=== PATIENT | female | born 1930 | race Caucasian/White ===

== ENCOUNTER → 2017-01-03 | Outpatient (CLI) | payer MEDICARE, BC ==
[~2017-01-03] MED LIST: ACETAMINOPHEN PO; ALAVERT10 MG PO; ALBUTEROL MININEB INH; ALDACTONE PO; AMITIZA8 MCG PO; AMLODIPINE BESYL5 MG PO; ANTIVERT PO; ANTIVERT12.5 MG; ANTIVERT12.5 MG PO; APRESOLINE10 M1 PO; ASCORBIC ACID500 MG PO; ASPIRIN EC81 M1 PO; ASPIRIN PO; ASPIRIN81 M1 PO; ASPIRIN81 M2 PO; ASPIRIN81 MG PO; CARVEDILOL3.125 MG PO; CATAPRES0.1 M1 PO; CIPRO PO; COREG3.125 MG PO; COUMADIN PO; COUMADIN4 MG PO; COUMADIN5 MG PO; COZAAR100 MG PO; DIGITEK; DIGOXIN125 MCG PO; FISH OIL 1,001000 MG PO; FUROSEMIDE40 MG PO; GUAIFEN-P-EPHE480 ML PO; HCTZ PO; HYDRALAZINE HCL50 MG PO; IMDUR-ER30 M1 PO; IMDUR-ER30 M3 PO; IMDUR-ER30 MG PO; IMODIUM2 MG PO; ISOSORBIDE MONO30 M1 PO; K-DUR20 ME1 PO; KCL PO; KEPPRA500 M1 PO; KEPPRA500 MG PO; KLOR-CON PO; KLOR-CON SPRIN10 MEQ PO; LANOXIN IV; LANOXIN PO; LANOXIN125 MCG PO; LASIX PO; LEVAQUIN PO; LEVAQUIN750 M1 PO; LEXAPRO PO; LOPRESSOR PO; LOSARTAN POTAS100 MG PO; METOPROLOL SUCC50 MG PO; METOPROLOL TAR25 MG PO; METOPROLOL TART25 MG PO; MIRALAX119 GM PO; MIRALAX17 G2 PO; MIRALAX17 GM; MIRALAX17 GM PO; MUCINEX1200 MG/BO PO; NATURAL VITA200 UNI1 PO; NITROGLYGERIN0.4 MG SL; NITROQUICK0.4 MG SL; NORVASC PO; NORVASC2.5 MG PO; OMEGA 3; OMEGA 3 PO; OMEGA 3-6-9 CO400 MG PO; OMEGA-3 SOFTGE1 EACH PO; OMEGA-3-FISH O1 EACH PO; OMEPRAZOLE20 M2 PO; PANTOPRAZOLE SO20 MG; PANTOPRAZOLE SO40 MG PO; PHENERGAN PO; PREVACID PO; PRILOSEC20 M1; PROTONIX PO; PROVERA PO; ROBINUL FORTE2 MG PO; SENNA PO; SENNA S TABLET1 TAB PO; SENNA8.6 M2 PO; SENNA8.6 M3; SENNAKOT PO; SEPTRA DS PO; TOPROL XL 50 MG50 M1 PO; TOPROL XL 50 MG50 MG PO; TOPROL XL PO; TOPROL XL50 MG PO; TRAMADOL HCL50 M1 PO; ULTRAM PO; VIT E PO; VITAMIN C PO; VITAMIN C500 M1 PO; VITAMIN E200 UNI3 PO; VITAMIN E200 UNIT PO; WARFARIN SODIUM2 M1 PO; WARFARIN SODIUM4 M1 PO; ZITHROMAX PO; [UNRECOGNIZED DRUG - OTHER]
--- NOTE | ~2017-01-03 | CR169 ---
[facility] A [facility] RADIOLOGY TEXT RESULTS PATIENT: FILIBERTO KING LOCATION: [facility] : [birth year] UNIT #: [id number] AGE: [address]: Radha Villegas MD SEX: F ORDER DR: [id number] [address] [address] [id number] O MR#: [id number] Acc #: [id number] NAME: FILIBERTO KING : 1930 SEX: F STUDY DATE/TIME: 01/03/2017 12:02 UNIT: [facility] ROOM: STUDY DESCRIPTION: CR Knee 2 Views Lt Attending Physician: Radha Villegas M.D. Referring Physician: Radha Villegas M.D. Ordering Physician: Radha Villegas M.D. Primary Care Physician: Radha Villegas M.D. MEDICAL IMAGING REPORT This report is preliminary unless electronic signature is present. EXAM Left knee. DATE OF EXAM 01/03/2017 INDICATIONS 86-year-old female with osteoarthritis, pain with weightbearing on the left for 2 weeks. No known injury. REPORT 2 views of the left knee. COMPARISON No comparisons. FINDINGS The bones are osteopenic. No acute fracture or joint effusion. Mild tricompartmental degenerative changes most severe in the lateral compartment. There is spurring of the tibial spines. IMPRESSION 1. Degenerative changes, otherwise, negative. Dictated by... Dannie Steele M.D. THIS IS AN ELECTRONICALLY VERIFIED REPORT Dannie Steele M.D. at 01/03/2017 7:17 PM SAGE/shayy TD: 01/03/2017 17:52 [facility] A [facility] RADIOLOGY TEXT RESULTS PATIENT: FILIBERTO KING LOCATION: [facility] : [birth year] UNIT #: [id number] AGE: [address]: Radha Villegas MD SEX: F ORDER DR: PRIYA #: [id number] MEDICAL IMAGING REPORT Page 1 of 1
--- NOTE | ~2017-01-03 | CR170 ---
[facility] A [facility] RADIOLOGY TEXT RESULTS PATIENT: FILIBERTO KING LOCATION: [facility] : [birth year] UNIT #: [id number] AGE: [address]: Radha Villegas MD SEX: F ORDER DR: [id number] [address] [address] [id number] O MR#: [id number] Acc #: [id number] NAME: FILIBERTO KING : 1930 SEX: F STUDY DATE/TIME: 01/03/2017 12:02 UNIT: [facility] ROOM: STUDY DESCRIPTION: CR Knee 2 Views Rt Attending Physician: Radha Villegas M.D. Referring Physician: Radha Villegas M.D. Ordering Physician: Radha Villegas M.D. Primary Care Physician: Radha Villegas M.D. MEDICAL IMAGING REPORT This report is preliminary unless electronic signature is present. EXAM Right knee. DATE OF EXAM 01/03/2017 INDICATIONS 86-year-old female complaining of pain with weightbearing for 2 weeks. No known injury. REPORT 2 views of the right knee. COMPARISON No comparisons. FINDINGS Tricompartmental degenerative changes are present with joint space narrowing and osteophytosis most severe laterally. There is spurring of the tibial spines. The bones are osteopenic. No acute fracture or distinct joint effusion. IMPRESSION 1. Tricompartmental degenerative changes. No acute fracture. Dictated by... Dannie Steele M.D. THIS IS AN ELECTRONICALLY VERIFIED REPORT Dannie Steele M.D. at 01/03/2017 7:[address] [facility] A [facility] RADIOLOGY TEXT RESULTS PATIENT: FILIBERTO KING LOCATION: [facility] : [birth year] UNIT #: [id number] AGE: [address]: Radha Villegas MD SEX: F ORDER DR: TD: 01/03/2017 17:53 JOB #: [id number] MEDICAL IMAGING REPORT Page 1 of 1
== END | disposition home or self-care (01) ==
LOC: SRAD 11:23
DX: M17.0 Bilateral primary osteoarthritis of knee (principal)
CPT/HCPCS: 73560